=== PATIENT | male | born 1950 | race Caucasian/White ===

== ENCOUNTER → 2016-12-24 | Outpatient (CLI) | payer MEDICARE, OTHER ==
[~2016-12-24] MED LIST: CARV12.52 PO; FLOMAX; HYDR-89 PO; LEVO500T69 PO; LISI40TA PO; LISINOPRIL; NITR-33 PO; OMEP-10 PO; OXYC-465 PO; PHEN200T27 PO; TMSL.4C PO
== END ==
LOC: PREOP 05:19
PROVIDERS: ATTEND Urology
DX: Z01.818 Encounter for other preprocedural examination (principal); N20.0 Calculus of kidney

== ENCOUNTER → 2017-03-29 | Outpatient (CLI) | payer MEDICARE, OTHER ==
--- NOTE | 2017-03-29 13:10 | Diagnostic Imaging Report ---
CLINICAL INDICATION: Patient with left renal stone. EXAM: KUB x-ray. COMPARISON: KUB x-ray dated 06/04/2013. FINDINGS: The previously seen roughly 13 mm calcification overlying the right kidney is not visualized on this exam. There are other areas of increased density overlying the expected region of the right renal shadow, which may represent stones. The largest measures 8 mm overlying the mid to upper portion. There are also some areas of increased density overlying the expected left renal shadow region with the largest measuring roughly 5 mm. There are no stones overlying the expected ureters. There are phleboliths seen in the pelvis and vascular calcifications. There is no evidence of acute abdominal or pelvic process. There is no intestinal obstruction or intra-abdominal free air. There are degenerative spurs and mild left curvature of the lumbar spine seen. IMPRESSION: 1: The previously seen 13 mm stone overlying the right kidney region is not visualized. 2: There are other areas of focal calcifications overlying both kidneys which may represent stones. If there is need for further evaluation, then CT scan would better evaluate. Dictated by: Dictated on workstation # [id number]
== END ==
LOC: RAD 12:33
PROVIDERS: ATTEND Urology
DX: N28.89 Other specified disorders of kidney and ureter (principal); Z87.442 Personal history of urinary calculi
CPT/HCPCS: 74000

== ENCOUNTER 2017-04-08 05:33 | Outpatient (CLI) | payer MEDICARE, OTHER ==
[~2017-04-08] VITALS: Ht 185.4 cm; Wt 113.4 kg
[2017-04-08] MEDS ORDERED: LISI40TA PO (13:02)
[2017-04-08] MEDS ORDERED: FOLI1TAB24 PO (13:02)
[2017-04-08] MEDS ORDERED: PRED5TAB46 PO (13:02)
[2017-04-08] MEDS ORDERED: ASPI-586 PO (13:02)
[2017-04-08] MEDS ORDERED: FURO-124 PO (13:02)
[2017-04-08] MEDS ORDERED: ATOR40TA70 PO (13:02)
[2017-04-08] MEDS ORDERED: METH2.5T PO (13:02)
[2017-04-08] MEDS ORDERED: CARV12.53 PO (13:02)
[2017-04-08] MEDS ORDERED: INFL100V IV (13:02)
== END 2017-04-08 13:39 ==
LOC: PREOP 05:33
PROVIDERS: ATTEND Urology
DX: Z01.818 Encounter for other preprocedural examination (principal); N20.0 Calculus of kidney

== ENCOUNTER 2017-04-13 05:48 | Day surgery (SDC) | payer MEDICARE, OTHER ==
[~2017-04-13] VITALS: Ht 185.4 cm; Wt 113.4 kg
[~2017-04-13 05:48] MED LIST changes: +ASPI-586 PO; +ATOR40TA70 PO; +CARV12.53 PO; +FOLI1TAB24 PO; +FURO-124 PO; +INFL100V IV; +METH2.5T PO; +PRED5TAB46 PO
[2017-04-13] MEDS ORDERED: MIDAZOLAM 2 MG/2 ML (VERSED) VIAL IV ONE (06:30)
[2017-04-13] MEDS ORDERED: cefTRIAXone INJECTION 1,000 MG in NS (IVPB) 50 ML IV ONE (06:30)
[2017-04-13] MEDS ORDERED: FAMOTIDINE 20MG/2ML IV (PEPCID) IV ONE (06:30)
[2017-04-13 06:50] VITALS: BP 146/74
[2017-04-13] MEDS ORDERED: ONDANSETRON 4 MG/2 ML (SDV) Z0FRAN ONE (06:53)
[2017-04-13] MEDS ORDERED: LIDOCAINE PF 2% 5 ML (XYLOCAINE) VIAL ONE (06:53)
[2017-04-13] MEDS ORDERED: SEVOFLURANE (ULTANE) 15 ML INHAL SOLN ONE (06:53)
[2017-04-13] MEDS ORDERED: fentaNYL INJECTION 100 MCG/2 ML AMP ONE (06:53)
[2017-04-13] MEDS ORDERED: DEXAMETHASONE 10 MG/ML (DECADRON) 1 ML VIAL ONE (06:53)
[2017-04-13] MEDS ORDERED: proPOfol 200 MG/20 ML (DIPRIVAN) VIAL IV ONE (06:53)
[2017-04-13] MEDS ORDERED: MIDAZOLAM 2 MG/2 ML (VERSED) VIAL ONE (06:54)
[2017-04-13] MEDS: LACTATED RINGERS 1,000 ML IV PRN ×2 (06:59→07:47)
[2017-04-13] MEDS ORDERED: NS (IVPB) 50 ML ONE (07:00)
[2017-04-13] MEDS ORDERED: cefTRIAXone 1 GM (ROCEPHIN) VIAL ONE (07:00)
--- NOTE | 2017-04-13 07:00 | Progress Note-Pre Operative ---
Pre-Operative Progress Note H&P Reviewed The H&P was reviewed, patient examined and no changes noted. Date Seen by Provider: Apr 13, 2017 Time Seen by Provider: 06:59 Date H&P Reviewed: Apr 13, 2017 Time H&P Reviewed: 06:59 Pre-Operative Diagnosis: LT RENAL STONE MC WORLEY MD Apr 13, 2017 7:00 am
--- NOTE | 2017-04-13 07:01 | Progress Note-Post Operative ---
Post-Operative Progess Note Surgeon (s)/Compound Filler (s) Surgeon MC WORLEY MD Compound Filler: N/A Pre-Operative Diagnosis LT RENAL STONE Post-Operative Diagnosis SAME Procedure & Operative Findings Date of Procedure 04/13/17 Procedure Performed/Findings LT ESWL Anesthesia Type GENERAL Estimated Blood Loss Estimated blood loss (mL): N/A Specimens/Packing Specimens Removed N/A Packing: N/A MC WORLEY MD Apr 13, 2017 7:01 am
--- NOTE | 2017-04-13 07:03 | Discharge Inst-Urology ---
Discharge Inst-Urology Discharge Medications New, Converted, or Re-newed RX: RX on Chart Patient Instructions/Follow Up Plan Please make appointment to been seen in office in 2 weeks. KUB prior to it and stay off ASA KUB on way home Post ESWL instructions Increase oral fluids for 48 hours and then as needed. Diet and Activity as tolerated. If questions or concerns contact your physician Or seek help at emergency department. MC WORLEY MD Apr 13, 2017 7:03 am
[2017-04-13] MEDS ORDERED: KETOROLAC 30 MG/ML VIAL ONE (07:45)
[2017-04-13] MEDS ORDERED: FUROSEMIDE 40 MG/4 ML INJ (LASIX) ONE (07:45)
--- NOTE | 2017-04-13 07:46 | Diagnostic Imaging Report ---
INDICATION: Renal calculus Radiopacities in the pelvis unchanged presumed phleboliths. Calculus projecting over the left renal midpole measuring about 4-5 mm unchanged. IMPRESSION: Left renal calculus unchanged. Pelvic calcifications unchanged. Dictated by: Dictated on workstation # [id number]
[2017-04-13] MEDS ORDERED: morphine INJ 10 MG/ML 1ML (SYR OR VIAL) IVP PRN (08:15)
[2017-04-13] MEDS ORDERED: ONDANSETRON 4 MG/2 ML (SDV) Z0FRAN IVP PRN (08:15)
[2017-04-13 08:45] VITALS: BP 134/75
[2017-04-13] MEDS ORDERED: TAMS0.4C98 PO (08:58)
[2017-04-13] MEDS ORDERED: NITR-68 PO (08:58)
[2017-04-13] MEDS ORDERED: HYDR-3874 PO (08:58)
[2017-04-13 09:15] VITALS: BP 147/67
[2017-04-13 09:45] VITALS: BP 154/77
[2017-04-13 09:55] VITALS: BP 154/77
--- NOTE | 2017-04-13 10:30 | Diagnostic Imaging Report ---
INDICATION: Postop ESWL. FINDINGS: Calcification projecting over the left kidney previously measured almost 5 mm. There now appears to be adjacent tiny 1-2 mm stone fragments at that level presumed reflective of its pulverization. Some regional mild small bowel gaseous ectasia which may reflect mild reactive ileus. Pelvic calcifications unchanged. IMPRESSION: There has likely been pulverization of the left renal calculus. No new pelvic calcification. Left upper quadrant gas containing mild small bowel ectasia noted. Dictated by: Dictated on workstation # [id number]
--- NOTE | 2017-04-13 18:20 | OPERATIVE REPORT ---
DATE OF SERVICE: 04/13/2017 PREOPERATIVE DIAGNOSIS: Left renal stone. POSTOPERATIVE DIAGNOSIS: Left renal stone. OPERATION PERFORMED: Left ESWL. SURGEON: Bipin Worley MD ANESTHESIA: General. COMPLICATIONS: None. PROCEDURE: Under satisfactory general anesthesia with the patient in supine position on the ESWL table, the left renal stone was localized. Shocks were delivered at kV of 5. A total of 2000 shocks completely fragmented the stone that was not visible anymore. The patient received 40 mg of Lasix and 30 mg of Toradol IV. He tolerated the procedure and anesthesia well and was sent to recovery room in stable condition. Instructions given to the and to the patient preoperatively. Job ID: [id number] DocumentID: [id number] Dictated Date: 04/13/2017 07:43:43 Inside Trucker Date: 04/13/2017 14:46:58 Dictated By: BIPIN WORLEY MD
== END 2017-04-13 09:55 | disposition home or self-care (01) ==
LOC: SDC 05:48
PROVIDERS: ATTEND Urology
DX: N20.0 Calculus of kidney (principal); Z11.2 Encounter for screening for other bacterial diseases; I25.10 Atherosclerotic heart disease of native coronary artery without angina pectoris; E78.00 Pure hypercholesterolemia, unspecified; Z95.5 Presence of coronary angioplasty implant and graft; I10 Essential (primary) hypertension; Z87.891 Personal history of nicotine dependence; Z79.82 Long term (current) use of aspirin; Z79.899 Other long term (current) drug therapy; Z79.52 Long term (current) use of systemic steroids
CPT/HCPCS: 74018; 87081

== ENCOUNTER → 2017-04-27 | Outpatient (CLI) | payer MEDICARE, OTHER ==
[~2017-04-27] MED LIST changes: +HYDR-3874 PO; +NITR-68 PO; +TAMS0.4C98 PO
--- NOTE | 2017-04-27 14:48 | Diagnostic Imaging Report ---
INDICATION: Status post left side lithotripsy. TIME OF EXAM: 2:53 PM. COMPARISON: 04/13/2017. FINDINGS: The previously seen calcific fragments overlying the lower pole of the left kidney are no longer visualized. No new renal calculi are seen. The bowel gas pattern is unremarkable. There are phleboliths in the left pelvis. IMPRESSION: The previously noted left renal calculi are no longer visualized. Dictated by: Dictated on workstation # [id number]
== END ==
LOC: RAD 14:25
PROVIDERS: ATTEND Urology
DX: Z09 Encounter for follow-up examination after completed treatment for conditions other than malignant neoplasm (principal); Z87.442 Personal history of urinary calculi
CPT/HCPCS: 74018